=== PATIENT | female | born 1950 | race Caucasian/White ===

== ENCOUNTER 2016-05-09 10:55 | Outpatient (CLI) | payer OTHER ==
--- NOTE | 2016-05-09 12:41 | DIAGNOSTIC IMAGING REPORT ---
PROCEDURE: MR LOWER EXT JOINT WO CONT-RT INDICATION: RIGHT KNEE INTERNAL DERANGEMENT, initial encounter TECHNIQUE: T1 and STIR sagittal, axial, coronal and coronal-oblique images. COMPARISON: Outside knee x-rays 05/06/2016 FINDINGS: Normal collateral and cruciate ligaments. Mild spurring and narrowing of the lateral compartment. Complex tear of the lateral meniscus body and posterior horn with moderate chondromalacia and minor subchondral bone marrow edema. Complex tear of the medial meniscus posterior horn with mild chondromalacia. Normal quadriceps tendon. Mild patellar tendinosis of the distal insertion. Chondromalacia patella with marked thinning of the cartilage along the medial facet. There is mild lateral patellar subluxation. Large joint effusion. Superior plica. 4.5 cm long popliteal cyst. Cystic changes of the head of the fibula. IMPRESSION: 1. Complex tear of the lateral meniscus body and posterior horn with moderate chondromalacia and minor subchondral bone marrow edema 2. Complex tear of the medial meniscus posterior horn with mild chondromalacia 3. Lateral patellar subluxation with chondromalacia patella 4. Large effusion with superior plica 5. Popliteal cyst
== END 2016-05-09 23:00 ==
LOC: MRI SRH 10:55
DX: S83.271A Complex tear of lateral meniscus, current injury, right knee, initial encounter (principal); M94.261 Chondromalacia, right knee; S83.231A Complex tear of medial meniscus, current injury, right knee, initial encounter; S83.011A Lateral subluxation of right patella, initial encounter; M25.461 Effusion, right knee; M71.21 Synovial cyst of popliteal space [Baker], right knee